=== PATIENT | female | born 1970 | race Caucasian/White ===

== ENCOUNTER 2018-08-27 18:58 | Emergency (ER) | payer OTHER ==
[2018-08-27] MEDS ORDERED: DIPHTH,PERTUSS(ACELL),TET 0.5 ML DISP.SYRIN IM ONE (19:42)
--- NOTE | 2018-08-27 19:42 | PDOC ---
Rapid Medical Evaluation Time Seen by Provider: 08/27/18 19:40 Medical Evaluation: 08/27/18 19:40 I have performed a brief in-person evaluation of this patient. The patient presents with a chief complaint of:bitten by stray kitten Pertinent physical exam findings:L thumb puncture wound at MCPJ I have ordered the following:Bostrix The patient will proceed to the ED for further evaluation. 08/27/18 19:42 Discharge Disposition - Diagnosis Cat bite involving extremity - Referrals - Patient Instructions - Post Discharge Activity
[2018-08-27 19:44] VITALS: BP 144/91; PULSE 77; TEMP 97.9; BMI 44.5
[2018-08-27] MEDS ORDERED: RABIES IMMUNE GLOBULIN 300 UNITS/1 ML VIAL IM ONE (20:23)
[2018-08-27] MEDS ORDERED: RABIES VACCINE (PCEC)/PF 2.5 UNIT/VIAL IM ONE ×2 (20:23→20:34)
--- NOTE | 2018-08-27 21:28 | PDOC ---
History of Present Illness - General Chief Complaint: Bite Stated Complaint: cat bite Time Seen by Provider: 08/27/18 19:40 History Source: Patient Exam Limitations: No Limitations - History of Present Illness Initial Comments: 08/27/18 21:21 HISTORY OF PRESENT ILLNESS: 48-year-old woman past medical history of asthma presents emergency department for evaluation of cat bite to her left hand. 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 Patient otherwise would improve but noticed that the pain worsens presented to ER for evaluation after work today. Patient is unsure of her last tetanus shot and released the cat after the cat bit her. No recent travel or sick contacts. PAST MEDICAL HISTORY: Asthma SURGICAL HISTORY: Denies ALLERGIES: No known drug allergies REVIEW OF SYSTEMS General/Constitutional: Denies fever or chills. Denies weakness, weight change. HEENT: Denies change in vision. Denies ear pain or discharge. Denies sore throat. Cardiovascular: Denies chest pain or shortness of breath. Respiratory: Denies cough, wheezing, or hemoptysis. Gastrointestinal: Denies nausea, vomiting, diarrhea or constipation. Denies rectal bleeding. Genitourinary: Denies dysuria, frequency, or change in urination. Musculoskeletal: Denies joint or muscle swelling or pain. Denies neck or back pain. Skin and breasts: Cat bite to left hand. Neurologic: Denies headache, vertigo, loss of consciousness, or loss of sensation. Psychiatric: Denies depression or anxiety. Endocrine: Denies increased thirst. Denies abnormal weight change. Hematologic/Lymphatic: Denies anemia, easy bleeding, or history of blood clots. Allergic/Immunologic: Denies hives or skin allergy. Denies latex allergy. PHYSICAL EXAM General Appearance: Well-appearing, appropriately dressed. No apparent distress , no intoxication. HEENT: EOMI, PERRLA, normal ENT inspection, normal voice, TMs normal, pharynx normal. No conjunctival pallor. No photophobia, scleral icterus. Neck: Supple. Trachea midline. No tenderness, rigidity, carotid bruit, stridor , lymphadenopathy, or thyromegaly. Respiratory/Chest: Lungs CTAB. No shortness of breath, chest tenderness, respiratory distress, accessory muscle use. No crackles, rales, rhonchi, stridor , wheezing, dullness Cardiovascular: RRR. S1, S2. No JVD, murmur, bradycardia, tachycardia. Vascular Pulses: Dorsalis-Pedis (R): 2+, Dorsalis-Pedis (L): 2+ Gastrointestinal/Abdominal: Normal bowel sounds. Abdomen soft, non-distended. No tenderness or rebound tenderness. No organomegaly, pulsatile mass, guarding, hernia, hepatomegaly, splenomegaly. Lymphatic: No adenopathy, tenderness. Musculoskeletal/Extremities: Normal inspection. FROM of all extremities, normal capillary refill. Pelvis Stable. No CVA tenderness. No tenderness to extremities, pedal edema, swelling, erythema or deformity. Integumentary: 3 punctate wounds presents to base of left thumb. 2 wounds present to the dorsum at the left metacarpal phalangeal joint and one on the palmar surface at the base of the left thumb. No erythema or streaking present. Bleeding is controlled. 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 Fully oriented, alert. Appropriate mood/affect. Motor strength 5/5. No appreciable EOM palsy, facial droop or sensory deficit. Past History - Past Medical History Allergies/Adverse Reactions: Allergies Allergy/AdvReac Type Severity Reaction Status Date / Time No Known Allergies Allergy Verified 08/27/18 19:58 Home Medications: Ambulatory Orders Amox-Tr/K Cl [Augmentin - 875Mg Tablet] 1 tab PO BID #14 tablet 08/27/18 Levothyroxine [Synthroid -] 300 mcg PO DAILY 08/27/18 Misoprostol [Cytotec -] 200 mcg PO QID 08/27/18 Montelukast Na [Singulair -] 10 mg PO HS 08/27/18 Asthma: No Cancer: No Cardiac Disorders: No CVA: No COPD: No CHF: No Dementia: No - Suicide/Smoking/Psychosocial Hx Smoking History: Never smoked Have you smoked in the past 12 months: No Information on smoking cessation initiated: No Hx Alcohol Use: No Drug/Substance Use Hx: No *Physical Exam - Vital Signs Last Vital Signs Temp Pulse Resp BP Pulse Ox 97.9 F 77 20 144/91 100 08/27/18 19:42 08/27/18 19:42 08/27/18 19:42 08/27/18 19:42 08/27/18 19:42 Moderate Sedation - Procedure Monitoring Vital Signs: Procedure Monitoring Vital Signs Temperature 97.9 F 08/27/18 19:42 Pulse Rate 77 08/27/18 19:42 Respiratory Rate 20 08/27/18 19:42 Blood Pressure 144/91 08/27/18 19:42 O2 Sat by Pulse Oximetry (%) 100 08/27/18 19:42 ED Treatment Course - RADIOLOGY Radiology Studies Ordered: Category Date Time Status HAND- LEFT [RAD] Stat Radiology 08/27/18 20:23 Taken - Medications Given in the ED: ED Medications Discontinued Medications Generic Name Dose Route Start Last Admin Trade Name Freq PRN Reason Stop Dose Admin Diphtheria/Tetanus/Acell Pertussis 0.5 ml 08/27/18 19:42 08/27/18 20:16 Boostrix - IM 08/27/18 19:43 0.5 ml .ONCE ONE Administration Rabies Vaccine 2.5 unit 08/27/18 20:23 08/27/18 20:38 Rabavert Rabies Vaccine IM 08/27/18 20:24 2.5 unit .ONCE ONE Administration Medical Decision Making - Medical Decision Making 08/27/18 21:28 A/P: 48-year-old woman with Right to left hand Boostrix Rabies Ig Rabies vaccine X-ray X-rays as read by me: No bony deformity or soft tissue swelling present. No joint subluxation noted. Discharge home with Rx for Augmentin x7 days. *DC/Admit/Observation/Transfer Diagnosis at time of Disposition: Cat bite involving extremity - Discharge Dispostion Disposition: HOME Condition at time of disposition: Stable Decision to Admit order: No - Prescriptions Prescriptions: Amox-Tr/K Cl [Augmentin - 875Mg Tablet] 1 tab PO BID #14 tablet - Referrals Referrals: Negin Avalos [Primary Care Provider] - - Patient Instructions Printed Discharge Instructions: DI for Animal Bites Additional Instructions: You have received rabies immunoglobulin and her first dose of the rabies vaccine today. Return to ER on 08/30, 09/03 and 09/10 for repeat rabies vaccines. Take Augmentin 875 mg twice a day for the next 7 days. Return to emergency department sooner if you experience worsening pain, redness to cat bites, change in behavior, red streaks extending up her arm from the cat bites, fevers or any other concerns. - Post Discharge Activity
== END 2018-08-27 21:48 | disposition home or self-care (01) ==
LOC: JERFT 18:58
PROC: 3E0234Z Introduction of Serum, Toxoid and Vaccine into Muscle, Percutaneous Approach (ICD-10-PCS; principal; 2018-08-27)
PROC: 3E0234Z Introduction of Serum, Toxoid and Vaccine into Muscle, Percutaneous Approach (ICD-10-PCS; 2018-08-27)
PROC: 3E0234Z Introduction of Serum, Toxoid and Vaccine into Muscle, Percutaneous Approach (ICD-10-PCS; 2018-08-27)
DX: S61.052A Open bite of left thumb without damage to nail, initial encounter (principal); W55.01XA Bitten by cat, initial encounter; Y93.K9 Activity, other involving animal care; Y92.89 Other specified places as the place of occurrence of the external cause; Y99.8 Other external cause status
CPT/HCPCS: 73130-TC-LT-FY; 90375; 90675; 90715; 99281-25

== ENCOUNTER 2018-08-30 07:59 | Emergency (ER) | payer OTHER ==
[2018-08-30 08:07] VITALS: BP 131/81; PULSE 76; TEMP 97.9; BMI 44.5
[2018-08-30] MEDS ORDERED: RABIES VACCINE (PCEC)/PF 2.5 UNIT/VIAL IM ONE ×2 (08:13→08:15)
--- NOTE | 2018-08-30 08:15 | PDOC ---
History of Present Illness - General Chief Complaint: Revisit,Rabies Injection Stated Complaint: Revistit, Rabies Injection Time Seen by Provider: 08/30/18 08:12 History Source: Patient Exam Limitations: No Limitations - History of Present Illness Initial Comments: 08/30/18 08:13 here for rabies vaccine #2, states was bitten by stray kitten 3 days ago to left thumb. Receieved immune globulinto wound and worries about sensory changes in thumb. OTW no problems. 08/30/18 08:23 Severity: mild Past History - Travel Traveled outside of the country in the last 30 days: No Close contact w/someone who was outside of country & ill: No - Past Medical History Allergies/Adverse Reactions: Allergies Allergy/AdvReac Type Severity Reaction Status Date / Time acetaminophen Allergy Verified 08/30/18 08:07 [From Tylenol-Codeine] codeine Allergy Verified 08/30/18 08:07 [From Tylenol-Codeine] Home Medications: Ambulatory Orders Amox-Tr/K Cl [Augmentin - 875Mg Tablet] 1 tab PO BID #14 tablet 08/27/18 Levothyroxine [Synthroid -] 300 mcg PO DAILY 08/27/18 Misoprostol [Cytotec -] 200 mcg PO QID 08/27/18 Montelukast Na [Singulair -] 10 mg PO HS 08/27/18 Asthma: No Cancer: No Cardiac Disorders: No CVA: No COPD: No CHF: No Dementia: No - Suicide/Smoking/Psychosocial Hx Smoking History: Never smoked Have you smoked in the past 12 months: No Information on smoking cessation initiated: No Hx Alcohol Use: No Drug/Substance Use Hx: No Review of Systems - Review of Systems Able to Perform ROS?: Yes Is the patient limited Maori proficient: Yes Constitutional: Yes: See HPI. No: Symptoms Reported, Fever, Malaise HEENTM: Yes: See HPI. No: Symptoms Reported Musculoskeletal: Yes: Symptoms Reported, Joint Swelling All Other Systems: Reviewed and Negative *Physical Exam - Vital Signs Last Vital Signs Temp Pulse Resp BP Pulse Ox 97.9 F 76 16 131/81 100 08/30/18 08:05 08/30/18 08:05 08/30/18 08:05 08/30/18 08:05 08/30/18 08:05 - Physical Exam General Appearance: Yes: Nourished, Appropriately Dressed HEENT: positive: RAMSEY, Normal ENT Inspection, TMs Normal Neck: positive: Supple Respiratory/Chest: positive: Lungs Clear, Normal Breath Sounds Musculoskeletal: positive: Normal Inspection Extremity: positive: Normal Capillary Refill, Normal Inspection Integumentary: positive: Normal Color, Bruising (minor bruising to 1 site of puncture wound to left thumb, but ), Other Neurologic: positive: 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 NML intact, Fully Oriented, Alert, Normal Mood/ Affect, Normal Response, Motor Strength 5/5 Moderate Sedation - Procedure Monitoring Vital Signs: Procedure Monitoring Vital Signs Temperature 97.9 F 08/30/18 08:05 Pulse Rate 76 08/30/18 08:05 Respiratory Rate 16 08/30/18 08:05 Blood Pressure 131/81 08/30/18 08:05 O2 Sat by Pulse Oximetry (%) 100 08/30/18 08:05 *DC/Admit/Observation/Transfer Diagnosis at time of Disposition: Need for rabies vaccination - Discharge Dispostion Disposition: HOME Condition at time of disposition: Stable Decision to Admit order: No - Referrals Referrals: Negin Avalos [Primary Care Provider] - - Patient Instructions Printed Discharge Instructions: DI for Rabies Vaccine Additional Instructions: Rest Return 09/03 for the 3rd Rabies Vaccine - Post Discharge Activity Forms/Work/School Notes: Back to Work
== END 2018-08-30 08:44 | disposition home or self-care (01) ==
LOC: JERFT 07:59
PROC: 3E0234Z Introduction of Serum, Toxoid and Vaccine into Muscle, Percutaneous Approach (ICD-10-PCS; principal; 2018-08-30)
DX: Z20.3 Contact with and (suspected) exposure to rabies (principal); W55.01XD Bitten by cat, subsequent encounter
CPT/HCPCS: 90675; 99281-25

== ENCOUNTER 2018-09-03 18:54 | Emergency (ER) | payer OTHER ==
--- NOTE | 2018-09-03 19:24 | PDOC ---
Rapid Medical Evaluation Time Seen by Provider: 09/03/18 19:24 Medical Evaluation: Allergies Allergy/AdvReac Type Severity Reaction Status Date / Time acetaminophen Allergy Verified 08/30/18 08:07 [From Tylenol-Codeine] codeine Allergy Verified 08/30/18 08:07 [From Tylenol-Codeine] 09/03/18 19:25 I performed a brief in-person evaluation of this patient. Chief complaint: Needs 3rd rabies vaccine Pertinent physical exam findings: Wound healing well I have ordered the following: Rabies vaccine Patient will proceed to the ED for further evaluation. Discharge Disposition - Diagnosis Need for rabies vaccination - Referrals Referrals: Negin Avalos [Primary Care Provider] - - Patient Instructions - Post Discharge Activity
[2018-09-03] MEDS ORDERED: RABIES VACCINE (PCEC)/PF 2.5 UNIT/VIAL IM ONE ×2 (19:25→19:40)
[2018-09-03 19:28] VITALS: BP 135/78; PULSE 74; TEMP 98.6; BMI 44.5
--- NOTE | 2018-09-03 19:40 | PDOC ---
History of Present Illness - General Chief Complaint: Bite Stated Complaint: FOLLOW UP Time Seen by Provider: 09/03/18 19:24 History Source: Patient Exam Limitations: No Limitations - History of Present Illness Initial Comments: 09/03/18 19:34 48 year old female with medical history of thyroid disease, carpal tunnel and thyroidectomy presents for rabies vaccine s/p bitten by stray cat. Patient reports no symptoms including fever chills or drainage from site. Occurred: reports: other (7 days ago ) Upper Extremity Pain Location: left: thumb Method of Injury: reports: other (cat bite) Modifying Factors: improves with: None Past History - Travel Traveled outside of the country in the last 30 days: No Close contact w/someone who was outside of country & ill: No - Past Medical History Allergies/Adverse Reactions: Allergies Allergy/AdvReac Type Severity Reaction Status Date / Time acetaminophen Allergy Verified 08/30/18 08:07 [From Tylenol-Codeine] codeine Allergy Verified 08/30/18 08:07 [From Tylenol-Codeine] Home Medications: Ambulatory Orders Amox-Tr/K Cl [Augmentin - 875Mg Tablet] 1 tab PO BID #14 tablet 08/27/18 Levothyroxine [Synthroid -] 300 mcg PO DAILY 08/27/18 Misoprostol [Cytotec -] 200 mcg PO QID 08/27/18 Montelukast Na [Singulair -] 10 mg PO HS 08/27/18 Asthma: No Cancer: No Cardiac Disorders: No CVA: No COPD: No CHF: No Dementia: No - Suicide/Smoking/Psychosocial Hx Smoking History: Never smoked Have you smoked in the past 12 months: No Information on smoking cessation initiated: No Hx Alcohol Use: No Drug/Substance Use Hx: No Review of Systems - Review of Systems Able to Perform ROS?: Yes Is the patient limited Vincentian proficient: No Constitutional: No: Chills, Fever, Malaise HEENTM: No: Ear Discharge, Nose Pain, Nose Congestion, Throat Swelling Respiratory: No: Orthopnea, Shortness of Breath, Productive cough Cardiac (ROS): No: Chest Pain, Lightheadedness, Palpitations ABD/GI: No: Nausea, Poor Appetite, Vomiting, Indigestion, Abdominal cramping : No: Burning, Dysuria, Discharge, Flank Pain Musculoskeletal: No: Joint Pain, Muscle Pain, Muscle Weakness, Neck Pain Integumentary: No: Bruising, Dryness, Erythema, Flushing Neurological: No: Numbness, Paresthesia, Weakness *Physical Exam - Vital Signs Last Vital Signs Temp Pulse Resp BP Pulse Ox 98.6 F 74 20 135/78 100 09/03/18 19:26 09/03/18 19:26 09/03/18 19:26 09/03/18 19:26 09/03/18 19:26 - Physical Exam General Appearance: Yes: Nourished, Appropriately Dressed. No: Apparent Distress HEENT: positive: RAMSEY, Pharynx Normal Neck: positive: Supple. negative: Lymphadenopathy (R), Lymphadenopathy (L) Respiratory/Chest: negative: Lungs Clear, Normal Breath Sounds, Respiratory Distress Cardiovascular: positive: Regular Rhythm, Regular Rate, S1, S2 Extremity: positive: Normal Capillary Refill Integumentary: positive: Other (+healed area to left thumb, no redness, drainage or swelling ) Neurologic: positive: piece hand II-XII NML intact, Fully Oriented, Alert Moderate Sedation - Procedure Monitoring Vital Signs: Procedure Monitoring Vital Signs Temperature 98.6 F 09/03/18 19:26 Pulse Rate 74 09/03/18 19:26 Respiratory Rate 20 09/03/18 19:26 Blood Pressure 135/78 09/03/18 19:26 O2 Sat by Pulse Oximetry (%) 100 09/03/18 19:26 Medical Decision Making - Medical Decision Making 09/03/18 19:39 48 year old female with medical history of thyroid disease, carpal tunnel and thyroidectomy presents for rabies vaccine s/p bitten by stray cat Plan rabies vaccine day 7 *DC/Admit/Observation/Transfer Diagnosis at time of Disposition: Need for rabies vaccination - Discharge Dispostion Disposition: HOME Condition at time of disposition: Good Decision to Admit order: No - Referrals Referrals: Negin Avalos [Primary Care Provider] - - Patient Instructions Printed Discharge Instructions: How to Care for a Domestic Animal Bite, DI for Rabies Vaccine Additional Instructions: Return in 7 days ( previously scheduled) for vaccine #4 Please return to ed for redness swelling or fever - Post Discharge Activity Forms/Work/School Notes: Back to Work
== END 2018-09-03 20:03 | disposition home or self-care (01) ==
LOC: JERFT 18:54
PROC: 3E0234Z Introduction of Serum, Toxoid and Vaccine into Muscle, Percutaneous Approach (ICD-10-PCS; principal; 2018-09-03)
DX: Z20.3 Contact with and (suspected) exposure to rabies (principal); W55.01XD Bitten by cat, subsequent encounter
CPT/HCPCS: 90675; 99281-25

== ENCOUNTER 2018-09-10 09:14 | Emergency (ER) | payer OTHER ==
[2018-09-10 09:24] VITALS: BP 137/83; PULSE 57; TEMP 97.5; BMI 44.5
[2018-09-10] MEDS ORDERED: RABIES VACCINE (PCEC)/PF 2.5 UNIT/VIAL IM ONE ×2 (09:45→09:48)
--- NOTE | 2018-09-10 09:46 | PDOC ---
Suture Removal/Wound Check HPI - History of Present Illness Chief Complaint: Revisit,Rabies Injection Stated Complaint: FOLLOW -UP Time Seen by Provider: 09/10/18 09:37 History Source: Yes: Patient Exam Limitations: Yes: No Limitations Treated at: [facility] ED - Previous ED Treatment Type of procedure performed on last visit: Yes: Other (wound care for cat bite with rabies prophylaxis) Tetanus Immunization: Yes: Up to Date Antibiotics Prescribed: Yes (augmentin) Past History - Travel Traveled outside of the country in the last 30 days: No Close contact w/someone who was outside of country & ill: No - Past Medical History Allergies/Adverse Reactions: Allergies Allergy/AdvReac Type Severity Reaction Status Date / Time acetaminophen Allergy Verified 09/10/18 09:22 [From Tylenol-Codeine] codeine Allergy Verified 09/10/18 09:22 [From Tylenol-Codeine] Home Medications: Ambulatory Orders Levothyroxine [Synthroid -] 300 mcg PO DAILY 08/27/18 Misoprostol [Cytotec -] 200 mcg PO QID 08/27/18 Montelukast Na [Singulair -] 10 mg PO HS 08/27/18 Asthma: No Cancer: No Cardiac Disorders: No CVA: No COPD: No CHF: No Dementia: No - Suicide/Smoking/Psychosocial Hx Smoking History: Never smoked Have you smoked in the past 12 months: No Information on smoking cessation initiated: No Hx Alcohol Use: No Drug/Substance Use Hx: No Suture Removal/Wound Check PE - Physical Exam Laceration/Wound Check Symptoms: reports: Resolved. denies: Pain, Fever, Chills , Redness Current Severity Level: None Maximum Severity Level: None Location of Laceration/Wound: left: Hand (thumb) *Review of Systems - Review of Systems Constitutional: No: Chills, Fever, Weakness Musculoskeletal: No: Joint Pain, Joint Swelling, Muscle Weakness Integumentary: No: Bruising, Erythema, Rash All Other Systems: Reviewed and Negative *Physical Exam - Vital Signs Last Vital Signs Temp Pulse Resp BP Pulse Ox 97.5 F L 57 L 18 137/83 100 09/10/18 09:22 09/10/18 09:22 09/10/18 09:22 09/10/18 09:22 09/10/18 09:22 - Physical Exam General Appearance: Yes: Nourished, Appropriately Dressed. No: Apparent Distress Extremity: positive: Normal Capillary Refill, Normal Inspection, Normal Range of Motion Integumentary: positive: Normal Color, Dry, Warm Neurologic: positive: Fully Oriented, Alert, Normal Mood/Affect, Normal Response Moderate Sedation - Procedure Monitoring Vital Signs: Procedure Monitoring Vital Signs Temperature 97.5 F L 09/10/18 09:22 Pulse Rate 57 L 09/10/18 09:22 Respiratory Rate 18 09/10/18 09:22 Blood Pressure 137/83 09/10/18 09:22 O2 Sat by Pulse Oximetry (%) 100 09/10/18 09:22 Medical Decision Making - Medical Decision Making 09/10/18 10:04 Pt is a 48 y/o F who presents to the ED for her last rabies vaccination Wound to the L hand is completely healed with no evidence of infection. Full ROM Pt completed antibiotic regimen Last rabies vaccine given DC home I discussed the physical exam findings, ancillary test results and final diagnoses with the patient. I answered all of the patient's questions. The patient was satisfied with the care received and felt comfortable with the discharge plan and treatment plan. The Patient agrees to follow up with the primary care physician/specialist within 24-72 hours. Return precautions were given. *DC/Admit/Observation/Transfer Diagnosis at time of Disposition: Need for rabies vaccination - Discharge Dispostion Disposition: HOME Condition at time of disposition: Stable Decision to Admit order: No - Referrals Referrals: Negin Avalos [Primary Care Provider] - - Patient Instructions Printed Discharge Instructions: DI for Rabies Vaccine Additional Instructions: You received your last rabies vaccine today Your wound has healed well Follow up with your primary care doctor as needed Return to the ED for any new or worsening symptoms - Post Discharge Activity Forms/Work/School Notes: Back to Work
== END 2018-09-10 10:02 | disposition home or self-care (01) ==
LOC: JERFT 09:14
PROC: 3E0234Z Introduction of Serum, Toxoid and Vaccine into Muscle, Percutaneous Approach (ICD-10-PCS; principal; 2018-09-10)
DX: Z20.3 Contact with and (suspected) exposure to rabies (principal); S61.452D Open bite of left hand, subsequent encounter; W55.01XD Bitten by cat, subsequent encounter
CPT/HCPCS: 90675; 99281-25